=== PATIENT | female | born 1965 | race Caucasian/White ===

== ENCOUNTER 2018-01-09 11:40 | Observation (INO) ==
[2018-01-09] MEDS ORDERED: Isovue-370 500 ML INFUS..BTL IV ONE (12:40)
--- NOTE | 2018-01-09 13:08 | Emergency Department Note ---
Disposition Clinical Impression: Renal infarct Disposition: Admitted As Inpatient Condition: Fair Time of Disposition: 16:15 General Adult HPI - General Chief complaint: ED Abdominal Pain Stated complaint: Needs Eval Time Seen by Provider: 01/09/18 11:57 Source: patient, family (Brother) Mode of arrival: ambulatory Limitations: no limitations Nursing Notes Reviewed: Yes Vital Signs Reviewed: Yes - History of Present Illness HPI Narrative: 52-year-old female history COPD and diabetes presents an emergency department requesting to be evaluated for possible FLAVIO. Patient reports on being evaluated at [facility] at that time complaining of some myalgia and flank pain and was discovered to have a clot in her left kidney. She was therefore transferred to [facility] where they evaluated her. She was reportedly placed on heparin in discovered to have a pneumonia and placed on antibiotic. During her hospital stay about 2 days ago she reports them discussing possibly doing a scope to evaluate for any clots in the heart. At that time she left against medical advice. She was advised to take heparin and an antibiotic as an outpatient but has not taken any over the past 48 hours. She has a schedule outpatient appointment with her family physician today at 1400 however prior to that she was directed to come here to emergency department. At the moment she denies any complaints such as fever, cough, congestion, chest pain, shortness of breath. She denies any hemoptysis, hematemesis, or black tarry stools. At one point in the examination she did report experiencing some epigastric pain. States it was nonradiating. No nausea or vomiting. No history of cardiac ischemic disease. Denies IV drug use. Pain Scale: 4 - Related Data Home Medications Medication Instructions Recorded Confirmed Albuterol Neb [Proventil Neb] 2.5 mg IH Q4HR 01/09/18 01/09/18 Albuterol Sulfate [Albuterol 2 puff IH Q4H PRN 01/09/18 01/09/18 Inhaler] Budesonide/Formoterol 160/4.5 2 puff IH BIDR 01/09/18 01/09/18 [Symbicort 160/4.5] Empagliflozin [Jardiance] 10 mg PO DAILY 01/09/18 01/09/18 Glimepiride [Amaryl] 4 mg PO BID 01/09/18 01/09/18 Omeprazole [PriLOSEC] 20 mg PO DAILY 01/09/18 01/09/18 SUMAtriptan Succinate [Imitrex] 100 mg PO DAILY PRN 01/09/18 01/09/18 Sertraline [Zoloft] 50 mg PO DAILY 01/09/18 01/09/18 Simvastatin [Zocor] 80 mg PO HS 01/09/18 01/09/18 Sitagliptin Phos/Metformin HCl 1 tab PO BID 01/09/18 01/09/18 [Janumet 50-1,000 mg Tablet] Allergies Allergy/AdvReac Type Severity Reaction Status Date / Time aspirin AdvReac See Verified 05/20/17 15:35 Comments All systems ED: reviewed and negative except as stated. Review of Systems: As Per HPI Constitutional: Denies: fever, chills ENT ED: Denies: congestion Cardiovascular: Denies: chest pain Respiratory: Denies: cough, dyspnea Gastrointestinal: Reports: abdominal pain. Denies: nausea, vomiting Musculoskeletal: Denies: back pain, neck pain Neurological: Denies: headache, weakness, numbness Past Medical History - Past Medical History Attestation: Yes The following information was validated with the patient. 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 - Social History Smoking Status: Current every day smoker Smokeless Tobacco Status: No Alcohol use: Reports: none Drug use: Reports: none Physical Exam - General Limitations: no limitations General appearance: alert, in no apparent distress - Head Head exam: atraumatic, normocephalic, normal inspection - Eye Eye exam: Present: normal appearance, PERRL, EOMI - ENT ENT exam: normal exam, normal oropharynx, mucous membranes moist - Neck Neck exam: Present: normal inspection, full ROM, trachea midline - Chest Chest inspection: Present: normal inspection, symmetric chest wall rise - Respiratory Respiratory exam: Present: normal lung sounds bilaterally - Cardiovascular Cardiovascular exam: Present: regular rate, normal rhythm, normal heart sounds - Expanded Cardiovascular Exam Peripheral pulses: 2+: radial (R), radial (L) - Abdominal Exam Abdominal exam: Present: soft, Non-Tender, normal bowel sounds. Absent: tenderness, distention, guarding, rebound, rigidity, pulsatile mass - Extremities Exam Extremities exam: Present: normal inspection, full ROM, normal capillary refill. Absent: tenderness, pedal edema - Back Exam Back exam: Present: normal inspection, full ROM. Absent: tenderness, CVA tenderness (R), CVA tenderness (L) - Neurological Exam Neurological exam: Present: alert, oriented X3 - Psychiatric Psychiatric exam: Present: normal affect, normal mood - Skin Skin exam: Present: warm, dry, intact, normal color Course Course Narrative: Given the patient's history will evaluate for possible cardiac etiology. Will also obtain records from outside facility including the [facility] and her transfer hospital [facility]. Her vitals are otherwise stable. Her exam is unremarkable. Will obtain a CT of the chest and abdomen to evaluate for excessive clot burden. Patient will likely require admission or possible transfer. She is in agreement with this plan. EKG did not reveal any acute ischemic changes. - Reevaluation(s) Reevaluation #1: We were able to obtain records from [facility] which shows the CT scan performed 01/03/2018 which had an impression of acute infarct of the inferior half of the left kidney. There need for consideration for cardiac echocardiogram. From what the patient describes this is likely what the physicians at [facility] where discussing. She has agreed to stay for admission. Will initiate heparin anticoagulation at this time. She denies any G.I. bleed symptoms. Impression is left renal infarct. - Consultations Consultation #1: The radiologist called me regarding abnormal results of the patient's CT scan which shows concern for evolving left inferior people infarct. Unfortunately we are still unable to obtain records from outside facility for comparison. Time: 14:38 Consultation #2: Discussed in consultation with urology regarding the patient's findings. States this is not a urologic issue and typically is more vascular. Recommends consulting with vascular surgeon. Time: 15:34 Consultation #3: Spoke in-depth with the on-call vascular surgeon Dr. Hardy, who agrees that the patient likely requires anticoagulation and to evaluate for embolic source. That would require echocardiogram to evaluate the heart. Given that she does not have any renal insufficiency is not necessarily emergency performed surgery. Does recommend that she have these procedures performed if we are unable to obtain records from outside facility or possible repeat up. At this time the patient denies any G.I. bleed symptoms. She has been off anticoagulation for past 2 days. She will require admission for further evaluation Time: 15:54 Additional Consultation(s): Spoke with on-call hospitalist mindy Benjamin to admit for left renal infarct. No further orders at this time Vital Signs Temperature 98.3 F 01/09/18 11:42 Pulse Rate 100 01/09/18 11:42 Respiratory Rate 16 01/09/18 11:42 Blood Pressure 137/87 01/09/18 11:42 O2 Sat by Pulse Oximetry 96 01/09/18 11:42 Temperature 98.3 F 01/09/18 12:12 Pulse Rate 79 01/09/18 15:17 Respiratory Rate 16 01/09/18 13:51 Blood Pressure 131/91 01/09/18 15:17 O2 Sat by Pulse Oximetry 96 01/09/18 15:17 Oxygen Delivery Oxygen Delivery Room Air Medical Decision Making - MDM Narrative Medical decision making narrative: Patient was discussed with my attending physician who agrees with ED management and final disposition. They independently evaluated the patient. Please refer to their attestation to this encounter for additional information. This note was generated by [employer] voice recognition software and as a result grammatical or spelling errors may occur using this program. - Medical Records Medical records reviewed: Yes I reviewed the patient's medical records. - Lab Data Lab results reviewed: Yes I reviewed the patient's lab results. Result diagrams: 01/09/18 16:23 01/09/18 12:50 Lab Results 01/09/18 01/09/18 01/09/18 Range/Units 12:40 12:50 12:50 WBC 14.1 H (4.3-11.1) K/mcL RBC 4.62 (3.82-4.97) M/mcL Hgb 14.2 (11.5-15.4) g/dL Hct 40.8 (35.3-44.9) % MCV 88.3 (83.0-100.0) fL MCH 30.7 (28.0-33.3) pg MCHC 34.8 (31.6-35.5) g/dL RDW 12.3 (11.5-14.5) % Plt Count 348 (140-400) K/mcL MPV 9.3 L (9.4-12.4) fL Immature Gran % 0.4 (0-4) % Seg Neutrophils % 64.8 % Lymphocytes % 24.7 % Monocytes % 7.6 % Eosinophils % 2.2 % Basophils % 0.3 % Neutrophils # 9.1 H (1.6-8.9) K/mcL Lymphocytes # 3.5 (0.6-4.6) K/mcL Monocytes # 1.1 (0.0-1.3) K/mcL Eosinophils # 0.3 (0.0-0.6) K/mcL Basophils # 0.0 (0.0-0.2) K/mcL PT 13.5 H (9.4-12.1) Seconds INR 1.2 APTT 29.0 (26.0-36.0) Seconds Heparin Anti-Xa, Unfract (0.30-0.70) IU/mL Sodium 136 (136-145) mEq/L Potassium 3.6 (3.5-5.1) mEq/L Chloride 101 (98-107) mEq/L Carbon Dioxide 26 (23-29) mEq/L BUN 9 (6-20) mg/dL Creatinine 0.59 L (0.60-1.20) mg/dL Est GFR ( Amer) > 60 (> 60) Est GFR (Non-Af Amer) > 60 (> 60) BUN/Creatinine Ratio 15 (6-26) Glucose 187 H (70-105) mg/dL Calculated Osmolality 286 (280-300) Lactic Acid (0.5-2.2) mmol/L Calcium 9.1 (8.6-10.3) mg/dL Troponin I < 0.03 (< 0.04) ng/mL 01/09/18 01/09/18 01/09/18 Range/Units 14:33 16:23 16:23 WBC 14.8 H (4.3-11.1) K/mcL RBC 4.52 (3.82-4.97) M/mcL Hgb 13.7 (11.5-15.4) g/dL Hct 40.0 (35.3-44.9) % MCV 88.5 (83.0-100.0) fL MCH 30.3 (28.0-33.3) pg MCHC 34.3 (31.6-35.5) g/dL RDW 12.4 (11.5-14.5) % Plt Count 337 (140-400) K/mcL MPV 9.3 L (9.4-12.4) fL Immature Gran % (0-4) % Seg Neutrophils % % Lymphocytes % % Monocytes % % Eosinophils % % Basophils % % Neutrophils # (1.6-8.9) K/mcL Lymphocytes # (0.6-4.6) K/mcL Monocytes # (0.0-1.3) K/mcL Eosinophils # (0.0-0.6) K/mcL Basophils # (0.0-0.2) K/mcL PT 15.0 H (9.4-12.1) Seconds INR 1.3 APTT (26.0-36.0) Seconds Heparin Anti-Xa, Unfract 1.69 H* (0.30-0.70) IU/mL Sodium (136-145) mEq/L Potassium (3.5-5.1) mEq/L Chloride (98-107) mEq/L Carbon Dioxide (23-29) mEq/L BUN (6-20) mg/dL Creatinine (0.60-1.20) mg/dL Est GFR ( Amer) (> 60) Est GFR (Non-Af Amer) (> 60) BUN/Creatinine Ratio (6-26) Glucose (70-105) mg/dL Calculated Osmolality (280-300) Lactic Acid 0.7 (0.5-2.2) mmol/L Calcium (8.6-10.3) mg/dL Troponin I (< 0.04) ng/mL - Radiology Data Radiology results reviewed: Yes I reviewed the patient's radiology results. Abdomen CTA 01/09/18 12:41 IMPRESSION: 1. No acute aortic pathology. No evidence of aortic aneurysm or dissection. Some mild focal plaque along the posterior wall of the proximal infrarenal aorta, without significant narrowing. 2. Heterogeneous attenuation of the lower pole of the left kidney most consistent with an evolving infarct. No underlying mass or significant hydronephrosis. Mild infiltration of the perinephric fat. The left renal artery is patent. 3. No acute findings within the chest. Stable noncalcified pulmonary nodules. Interval resolution of cavitary left lower lobe lesion, likely inflammatory in nature. Follow-up recommendations below. 4. Hepatic steatosis. 5. If comparison outside imaging becomes available with respect to the left renal infarct, correlation can be made and an addendum added later. Critical results were called to Troy Fall on 01/09/2018 at 2:38 pm. RECOMMENDATIONS: Fleischner Society guidelines for follow-up and management of incidentally detected pulmonary nodules: Multiple Solid Nodules: Nodule size less than 6 mm In a low-risk patient, no routine follow-up. In a high-risk patient, optional CT at 12 months. - Low risk patients include individuals with minimal or absent history of smoking and other known risk factors. - High risk patients include individuals with a history or smoking or known risk factors. Radiology 2017 http://pubs.rsna.org/doi/full/10.1148/radiol.[email or web address] D/ / 01/09/2018 14:57:47 Hoang James MD / immanuel Interpreting Provider: Hoang James MD Chest CTA 01/09/18 12:41 IMPRESSION: 1. No acute aortic pathology. No evidence of aortic aneurysm or dissection. Some mild focal plaque along the posterior wall of the proximal infrarenal aorta, without significant narrowing. 2. Heterogeneous attenuation of the lower pole of the left kidney most consistent with an evolving infarct. No underlying mass or significant hydronephrosis. Mild infiltration of the perinephric fat. The left renal artery is patent. 3. No acute findings within the chest. Stable noncalcified pulmonary nodules. Interval resolution of cavitary left lower lobe lesion, likely inflammatory in nature. Follow-up recommendations below. 4. Hepatic steatosis. 5. If comparison outside imaging becomes available with respect to the left renal infarct, correlation can be made and an addendum added later. Critical results were called to Troy Fall on 01/09/2018 at 2:38 pm. RECOMMENDATIONS: Fleischner Society guidelines for follow-up and management of incidentally detected pulmonary nodules: Multiple Solid Nodules: Nodule size less than 6 mm In a low-risk patient, no routine follow-up. In a high-risk patient, optional CT at 12 months. - Low risk patients include individuals with minimal or absent history of smoking and other known risk factors. - High risk patients include individuals with a history or smoking or known risk factors. Radiology 2017 http://pubs.rsna.org/doi/full/10.1148/radiol.[email or web address] D/ / 01/09/2018 14:57:47 Hoang James MD / immanuel Interpreting Provider: Hoang James MD - EKG Data EKG #1 EKG attestation: Yes I reviewed and interpreted this EKG. EKG results narrative: EKG performed 1248 normal sinus rhythm 83 beats per minute, poor R wave progression, no ST elevation or depression, no T-wave inversion, intervals within normal limits. No prior EKG is available for comparison at this time. No acute ischemic changes.
[2018-01-09 13:13] LABS: Basophils % 0.3 %; Eosinophils # 0.3 K/mcL (0.0-0.6); Eosinophils % 2.2 %; Hematocrit 40.8 % (35.3-44.9); Hemoglobin 14.2 g/dL (11.5-15.4); Immature Granulocytes % 0.4 % (0-4); Lymphocytes # 3.5 K/mcL (0.6-4.6); Lymphocytes % 24.7 %; Mean Corpuscular HGB Conc 34.8 g/dL (31.6-35.5); Mean Corpuscular Hemoglobin 30.7 pg (28.0-33.3); Mean Corpuscular Volume 88.3 fL (83.0-100.0); Mean Platelet Volume 9.3 fL (9.4-12.4); Monocytes # 1.1 K/mcL (0.0-1.3); Monocytes % 7.6 %; Neutrophils # 9.1 K/mcL (1.6-8.9); Platelet Count 348 K/mcL (140-400); Red Blood Count 4.62 M/mcL (3.82-4.97); Red Cell Distribution Width 12.3 % (11.5-14.5); Segmented Neutrophils % 64.8 %
[2018-01-09 13:19] LABS: INR 1.2; Prothrombin Time 13.5 Seconds (9.4-12.1)
[2018-01-09 13:34] LABS: Troponin I < 0.03 ng/mL (< 0.04)
[2018-01-09 13:38] LABS: BUN/Creatinine Ratio 15 (6-26); Blood Urea Nitrogen 9 mg/dL (6-20); Calcium 9.1 mg/dL (8.6-10.3); Chloride 101 mEq/L (98-107); Glucose 187 mg/dL (70-105); Osmolality,Calculated 286 (280-300); Potassium 3.6 mEq/L (3.5-5.1); Sodium 136 mEq/L (136-145); eGFR For Non-African Americans > 60 (> 60)
[2018-01-09 13:39] LABS: Carbon Dioxide 26 mEq/L (23-29)
[2018-01-09] MEDS ORDERED: Nicotine 21 MG PATCH.TD24 TD STA (14:36)
[2018-01-09] MEDS ORDERED: *HR* LORazepam 2 MG/ML VIAL IVP ONE (14:36)
--- NOTE | 2018-01-09 14:57 | Emergency Department Note ---
Disposition Clinical Impression: Renal infarct Disposition: Still a Patient Referrals: Ender Mcneal MD [Primary Care Provider] - Forms: ED Satisfaction Letter, Work/School Release General Adult HPI - General Chief complaint: ED Abdominal Pain Stated complaint: Needs Eval Time Seen by Provider: 01/09/18 11:57 Source: patient, family (Brother) Mode of arrival: ambulatory Limitations: no limitations - History of Present Illness Pain Scale: 4 - Related Data Home Medications Medication Instructions Recorded Confirmed Glimepiride 06/21/16 Invokana 06/21/16 Naprosyn 06/21/16 06/21/16 Previous Rx's Medication Instructions Recorded methylPREDNISolone [Medrol] 4 mg PO TAPER #21 tablet 06/21/16 Ibuprofen [Motrin] 800 mg PO Q8HR PRN #30 tablet 07/30/16 Sulfamethoxazole/Trimeth DS 1 each PO BID #20 tablet 03/12/17 [Bactrim DS] levoFLOXacin [Levaquin] 750 mg PO DAILY #7 tablet 05/20/17 predniSONE [PredniSONE] 60 mg PO DAILY 5 Days tablet 05/20/17 Allergies Allergy/AdvReac Type Severity Reaction Status Date / Time aspirin AdvReac See Verified 05/20/17 15:35 Comments Constitutional: Denies: fever, chills ENT ED: Denies: congestion Cardiovascular: Denies: chest pain Respiratory: Denies: cough, dyspnea Gastrointestinal: Reports: abdominal pain. 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 history: Reports: no ADMINISTRATIVE HEARING OFFICER history - Social History Smoking Status: Current every day smoker Smokeless Tobacco Status: No Alcohol use: Reports: none Drug use: Reports: none Physical Exam - General Limitations: no limitations General appearance: alert, in no apparent distress Course Vital Signs Temperature 98.3 F 01/09/18 11:42 Pulse Rate 100 01/09/18 11:42 Respiratory Rate 16 01/09/18 11:42 Blood Pressure 137/87 01/09/18 11:42 O2 Sat by Pulse Oximetry 96 01/09/18 11:42 Temperature 98.3 F 01/09/18 12:12 Pulse Rate 81 01/09/18 13:51 Respiratory Rate 16 01/09/18 13:51 Blood Pressure 116/81 01/09/18 13:51 O2 Sat by Pulse Oximetry 97 01/09/18 13:51 Oxygen Delivery Oxygen Delivery Room Air Medical Decision Making - Lab Data Result diagrams: 01/09/18 12:50 01/09/18 12:50 Lab Results 01/09/18 01/09/18 01/09/18 Range/Units 12:40 12:50 12:50 WBC 14.1 H (4.3-11.1) K/mcL RBC 4.62 (3.82-4.97) M/mcL Hgb 14.2 (11.5-15.4) g/dL Hct 40.8 (35.3-44.9) % MCV 88.3 (83.0-100.0) fL MCH 30.7 (28.0-33.3) pg MCHC 34.8 (31.6-35.5) g/dL RDW 12.3 (11.5-14.5) % Plt Count 348 (140-400) K/mcL MPV 9.3 L (9.4-12.4) fL Immature Gran % 0.4 (0-4) % Seg Neutrophils % 64.8 % Lymphocytes % 24.7 % Monocytes % 7.6 % Eosinophils % 2.2 % Basophils % 0.3 % Neutrophils # 9.1 H (1.6-8.9) K/mcL Lymphocytes # 3.5 (0.6-4.6) K/mcL Monocytes # 1.1 (0.0-1.3) K/mcL Eosinophils # 0.3 (0.0-0.6) K/mcL Basophils # 0.0 (0.0-0.2) K/mcL PT 13.5 H (9.4-12.1) Seconds INR 1.2 APTT 29.0 (26.0-36.0) Seconds Sodium 136 (136-145) mEq/L Potassium 3.6 (3.5-5.1) mEq/L Chloride 101 (98-107) mEq/L Carbon Dioxide 26 (23-29) mEq/L BUN 9 (6-20) mg/dL Creatinine 0.59 L (0.60-1.20) mg/dL Est GFR ( Amer) > 60 (> 60) Est GFR (Non-Af Amer) > 60 (> 60) BUN/Creatinine Ratio 15 (6-26) Glucose 187 H (70-105) mg/dL Calculated Osmolality 286 (280-300) Lactic Acid (0.5-2.2) mmol/L Calcium 9.1 (8.6-10.3) mg/dL Troponin I < 0.03 (< 0.04) ng/mL 01/09/18 Range/Units 14:33 WBC (4.3-11.1) K/mcL RBC (3.82-4.97) M/mcL Hgb (11.5-15.4) g/dL Hct (35.3-44.9) % MCV (83.0-100.0) fL MCH (28.0-33.3) pg MCHC (31.6-35.5) g/dL RDW (11.5-14.5) % Plt Count (140-400) K/mcL MPV (9.4-12.4) fL Immature Gran % (0-4) % Seg Neutrophils % % Lymphocytes % % Monocytes % % Eosinophils % % Basophils % % Neutrophils # (1.6-8.9) K/mcL Lymphocytes # (0.6-4.6) K/mcL Monocytes # (0.0-1.3) K/mcL Eosinophils # (0.0-0.6) K/mcL Basophils # (0.0-0.2) K/mcL PT (9.4-12.1) Seconds INR APTT (26.0-36.0) Seconds Sodium (136-145) mEq/L Potassium (3.5-5.1) mEq/L Chloride (98-107) mEq/L Carbon Dioxide (23-29) mEq/L BUN (6-20) mg/dL Creatinine (0.60-1.20) mg/dL Est GFR ( Amer) (> 60) Est GFR (Non-Af Amer) (> 60) BUN/Creatinine Ratio (6-26) Glucose (70-105) mg/dL Calculated Osmolality (280-300) Lactic Acid 0.7 (0.5-2.2) mmol/L Calcium (8.6-10.3) mg/dL Troponin I (< 0.04) ng/mL Attestation Statement - Attestation Attestation: I examined this patient and my medical decision-making was reviewed with the Resident Physician. I agree with the documented findings, disposition and treatment plan as described except to the extent set forth below. 52 year old female presents to the ED with complaints of need re-evaluation. Patient states that she was admitted to [facility] and transfferred to [facility] for a blood clot in her left kidney in addition to needing urology and left AMA from [facility] before her evaluation completed which included a FLAVIO and hem-onc consultation for blood clots. We repeated her CT today and it appears that she has a renal infarct of the left but we are unsure if this has worsened secondary to inabilityt to having therpay to heparin due to leaving AMA. We will consult with our urologist before transferring to [facility].
[2018-01-09] MEDS ORDERED: *HR* Heparin 5,000 UNIT/ML VIAL IVP PRN ×2 (15:51)
[2018-01-09] MEDS ORDERED: *HR* Heparin 5,000 UNIT/ML VIAL IVP ONE (15:51)
[2018-01-09] MEDS: Heparin 25,000 UNIT/500 ML D5W 25,000 UNIT/500 ML BAG IVC SCH (16:07)
[2018-01-09 16:36] LABS: Hemoglobin 13.7 g/dL (11.5-15.4); Mean Corpuscular HGB Conc 34.3 g/dL (31.6-35.5); Mean Corpuscular Hemoglobin 30.3 pg (28.0-33.3); Mean Corpuscular Volume 88.5 fL (83.0-100.0); Mean Platelet Volume 9.3 fL (9.4-12.4); Platelet Count 337 K/mcL (140-400); Red Blood Count 4.52 M/mcL (3.82-4.97); Red Cell Distribution Width 12.4 % (11.5-14.5)
[2018-01-09 16:41] LABS: INR 1.3
[2018-01-09 16:43] LABS: Heparin anti-factor XA UFH 1.69 IU/mL (0.30-0.70)
[2018-01-09] MEDS ORDERED: Naloxone 0.4 MG/ML INJ IVP PRN (17:34)
[2018-01-09] MEDS ORDERED: Acetaminophen 325 MG TABLET PO PRN (17:34)
[2018-01-09] MEDS ORDERED: SUMAtriptan succinate 50 MG TABLET PO PRN (17:36)
[2018-01-09] MEDS ORDERED: *HR* Dextrose 50 % in Water (Syg) 50 ML SYRINGE IVP PRN (17:36)
[2018-01-09] MEDS ORDERED: Dextrose Gel 15 GM/37.5 ML TUBE PO PRN ×2 (17:36)
[2018-01-09] MEDS ORDERED: D5% in Water 1,000 ML IVC PRN (17:36)
--- NOTE | 2018-01-09 17:42 | Internal Med History&Physical ---
Date of Encounter: 01/09/18 Time of Encounter: 17:39 Internal Medicine - H&P: HPI Chief complaint: Left renal infarct Admitted From: Emergency Dept Plans for Post Hospital Care: Home History of present illness: Ms. Carlisle is a 52 year old female with history of COPD and diabetes, presents for possible FLAVIO. Patient is a poor historian, cannot provide detailed answers , history is also obtained by review of ER records. Patient apparently presented to [facility] emergency room last week with complaints of flulike symptoms including nausea, vomiting, diarrhea along with left flank pain. CT abdomen showed left-sided renal infarct and patient was transferred to [facility] for further evaluation and treatment. Patient does not know her plan of care at [facility], however states that she has been treated for pneumonia and renal infarct and scheduled for transesophageal echocardiogram and she left AGAINST MEDICAL ADVICE. She did receive prescriptions for an antibiotic and 2 blood thinners, the names of which she does not remember. She currently denies flank pain, hematuria, dysuria, nausea, vomiting, fever, chills. No chest pain or shortness of breath. Past Med Surg Social Fam HX - Past Medical History Source: patient, old records reviewed Medical history: COPD, coronary artery disease, diabetes, hyperlipidemia, hypertension, myocardial infarction, other Psychiatric history: anxiety, depression - Past Surgical History Surgical History: , cholecystectomy Additional surgical history: right carpal tunnel - Social History Smoking Status: Current every day smoker Smokeless Tobacco Status: No Alcohol use: none Drug use: none Occupational status: unemployed Current living situation: Home, With Family Activity Level: Independent ambulation Recent Out of Country Travel Within the Last 8 Weeks: No Exposure or Possible Exposure to Illness During Travel: No - Family History Mother Hx Family Cancer: Yes (cervical cancer) Daughter Hx Family Cancer: Yes (cervical cancer) Internal Medicine - H&P: Meds Albuterol Neb [Proventil Neb] 2.5 mg IH Q4HR 01/09/18 [History] Albuterol Sulfate [Albuterol Inhaler] 2 puff IH Q4H PRN 01/09/18 [History] Budesonide/Formoterol 160/4.5 [Symbicort 160/4.5] 2 puff IH BIDR 01/09/18 [ History] Empagliflozin [Jardiance] 10 mg PO DAILY 01/09/18 [History] Glimepiride [Amaryl] 4 mg PO BID 01/09/18 [History] Omeprazole [PriLOSEC] 20 mg PO DAILY 01/09/18 [History] SUMAtriptan Succinate [Imitrex] 100 mg PO DAILY PRN 01/09/18 [History] Sertraline [Zoloft] 50 mg PO DAILY 01/09/18 [History] Simvastatin [Zocor] 80 mg PO HS 01/09/18 [History] Sitagliptin Phos/Metformin HCl [Janumet 50-1,000 mg Tablet] 1 tab PO BID [History] 3 Allergy/AdvReac Type Severity Reaction Status Date / Time aspirin AdvReac See Verified 05/20/17 15:35 Comments All Systems PM: A 10-system review of systems was performed and is negative for pertinent findings except as documented above in the HPI. - Constitutional Constitutional: no chills, no fever(s), no night sweats - EENT Eyes: no change in vision, no discharge, no pain, no photophobia Ears: no ear discharge, no ear pain, no tinnitus Nose, mouth and throat: no dysphagia, no nasal discharge, no neck pain, no sore throat - Cardiovascular Cardiovascular ROS IM: no chest pain, no diaphoresis, no dyspnea, no lightheadedness, no palpitations, no syncope - Respiratory Respiratory: no cough, no dyspnea, no wheezing, no excessive phlegm production - Gastrointestinal Gastrointestinal: no abdominal pain, no diarrhea, no hematemesis, no hematochezia, no melena, no nausea, no vomiting - Genitourinary Genitourinary: no change in urinary stream, no dysuria, no flank pain, no hematuria - Musculoskeletal Musculoskeletal ROS IM: no numbness, no tingling - Integumentary Integumentary IM: no rash, no unusual bruising - Neurological Neurological ROS: no confusion, no convulsions, no focal weakness, no numbness, no tingling, no tremor(s) - Hematologic/Lymphatic Hematologic/Lymphatic: no easy bruising - Constitutional Vitals: Temp Pulse Resp BP Pulse Ox 98.3 F 87 18 136/82 95 01/09/18 12:12 01/09/18 16:30 01/09/18 17:18 01/09/18 17:18 01/09/18 16:30 General appearance: Present: disheveled, A&O X 3, answers questions appropriately - Respiratory Respiratory exam: Present: CTAB. Absent: accessory muscle use, rales, rhonchi, wheezes - Cardiovascular Cardiovascular exam: Present: RRR, +S1, +S2. Absent: diastolic murmur, gallop, rubs, systolic murmur - GI/Abdominal GI/Abdominal exam: Present: normal bowel sounds, soft, no peritoneal signs. Absent: distended, tenderness - Extremities Exam Extremities exam: Present: full ROM, warm, radial pulses palpable and symmetrical. Absent: calf tenderness, cyanotic, pedal edema - Neurological Exam Neurological exam: Present: CN II-XII intact, oriented X3, no focal deficits. Absent: pronater drift, facial droop, speech deficit - Skin Skin exam: Present: dry, intact Internal Med - H&P Results - Labs CBC & Chem 7: 01/09/18 16:23 01/09/18 12:50 - Assessment and plan (1) Renal infarct Current Visit: Yes Status: Acute Assessment and plan: CT angiogram of chest and abdomen shows evolving infarct in left lower pole of kidney, left renal artery patent. Case was discussed with vascular surgery by ER physician, recommended no acute surgical intervention at this time, to continue anticoagulation and further evaluation for etiology. Continue IV heparin drip. Unable to obtain records from [facility] at this time. Will check transthoracic echocardiogram. Vascular surgery consult. Supportive care. Continue to monitor renal function and urine output closely. Serum creatinine normal at this time. (2) COPD (chronic obstructive pulmonary disease) Current Visit: Yes Status: Chronic Assessment and plan: not in acute exacerbation. Continue when necessary bronchodilators and supplemental oxygen. Continue inhaled corticosteroids. Qualifiers: COPD type: unspecified COPD Qualified Code(s): J44.9 - Chronic obstructive pulmonary disease, unspecified (3) Diabetes mellitus Current Visit: Yes Status: Chronic Assessment and plan: Patient reports that she has uncontrolled diabetes. Start Accu-Chek blood glucose monitoring with sliding scale insulin as needed. Check hemoglobin A1c. Diabetic diet. We will hold oral hypoglycemics at this time. 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 (5) Tobacco abuse Current Visit: Yes Status: Chronic Assessment and plan: Patient is not motivated to quit smoking at this time. Continue when necessary nicotine transdermal patch. (6) Hyperlipidemia Current Visit: Yes Status: Chronic Assessment and plan: Resume statin. Qualifiers: Hyperlipidemia type: unspecified Qualified Code(s): E78.5 - Hyperlipidemia , unspecified - Time Spent With Patient Total time spent is greater than 50% in coordination of care (as documented) at patient's floor/unit and/or counseling patient:
[2018-01-09 19:04] LABS: Estimated Average Glucose 235 mg/dl; Hemoglobin A1C 9.8 %
[2018-01-09] MEDS: Budesonide/Formoterol 160/4.5 MDI IH SCH (19:58)
[2018-01-09] MEDS: Albuterol 2.5 MG/3 ML NEBULIZER IH SCH ×2 (19:58→23:44)
[2018-01-09] MEDS ORDERED: Insulin LISPRO 300 UNITS/3 ML VIAL SQ SCH (21:00)
[2018-01-10] MEDS: Albuterol 2.5 MG/3 ML NEBULIZER IH SCH (03:52)
[2018-01-10 05:53] LABS: Basophils # 0.1 K/mcL (0.0-0.2); Basophils % 0.4 %; Eosinophils # 0.5 K/mcL (0.0-0.6); Eosinophils % 3.7 %; Hematocrit 37.2 % (35.3-44.9); Hemoglobin 12.5 g/dL (11.5-15.4); Immature Granulocytes % 0.5 % (0-4); Lymphocytes # 3.6 K/mcL (0.6-4.6); Mean Corpuscular HGB Conc 33.6 g/dL (31.6-35.5); Mean Corpuscular Hemoglobin 30.3 pg (28.0-33.3); Mean Corpuscular Volume 90.1 fL (83.0-100.0); Mean Platelet Volume 9.6 fL (9.4-12.4); Monocytes # 1.1 K/mcL (0.0-1.3); Neutrophils # 8.1 K/mcL (1.6-8.9); Platelet Count 340 K/mcL (140-400); Red Blood Count 4.13 M/mcL (3.82-4.97); Red Cell Distribution Width 12.5 % (11.5-14.5); Segmented Neutrophils % 60.4 %
[2018-01-10 06:12] LABS: BUN/Creatinine Ratio 26 (6-26); Blood Urea Nitrogen 14 mg/dL (6-20); Calcium 8.6 mg/dL (8.6-10.3); Carbon Dioxide 26 mEq/L (23-29); Chloride 103 mEq/L (98-107); Chol/HDL Ratio 5.2 (0-4.9); Cholesterol 141 mg/dL (< 200); Glucose 246 mg/dL (70-105); HDL Cholesterol 27 mg/dL (40-59); LDL Cholesterol,Calculated 79 mg/dL (0-99); Osmolality,Calculated 289 (280-300); Potassium 3.9 mEq/L (3.5-5.1); Sodium 135 mEq/L (136-145); Triglycerides 177 mg/dL (< 150); eGFR For Non-African Americans > 60 (> 60)
--- NOTE | 2018-01-10 06:43 | Electrocardiograph Report ---
[facility] Date: 2018-01-09 Pat Name: Blanka Carlisle Department: 104 Room: 2A37 Gender: F Consultant Dietitian: : 1965 Requested By: Troy Fall Order Number: [id number] Reading MD: Yusef Temple Measurements Intervals [place] Rate: 83 P: 71 NE: 190 QRS: -16 QRSD: 88 T: 39 QT: 332 QTc: 371 Interpretive Statements SINUS RHYTHM LEFT ATRIAL ENLARGEMENT WARNING: DATA QUALITY MAY AFFECT INTERPRETATION Electronically Signed On 01-10-2018 6:42:12 EDT by Yusef Temple
[2018-01-10] MEDS ORDERED: Albuterol 2.5 MG/3 ML NEBULIZER IH PRN (07:23)
[2018-01-10] MEDS ORDERED: Insulin LISPRO 300 UNITS/3 ML VIAL SQ SCH ×2 (07:30→21:00)
[2018-01-10] MEDS: Budesonide/Formoterol 160/4.5 MDI IH SCH ×2 (10:35→20:16)
[2018-01-10] MEDS: Insulin LISPRO 300 UNITS/3 ML VIAL SQ SCH ×2 (12:59→18:37)
--- NOTE | 2018-01-10 14:48 | Vascular/Endovasc Consult Note ---
Date of Encounter: 01/10/18 Time of Encounter: 12:15 Assessment and Plan (1) CAD (coronary artery disease) Current Visit: No Status: Chronic History of coronary artery disease and previous infarction. Qualifiers: Coronary Disease-Associated Artery/Lesion type: [place] artery [place] vs. transplanted heart: rincon heart Associated angina: angina presence unspecified Qualified Code(s): I25.10 - Atherosclerotic heart disease of rincon coronary artery without angina pectoris (2) Renal infarct Current Visit: Yes Status: Acute Patient had infarction of the lower 3/5 of the left kidney. Etiology at this time is unclear. There appears to be no aortic or renal artery pathology. Right kidney appears normal. Patient is asymptomatic from this lesion at this time. Due to the patient's nausea and vomiting one potential etiology can be a renal vein thrombosis though this apparently was not found on the CT angiogram. Encourage that the patient have transesophageal echocardiogram. Doubt any need for vascular intervention. Patient will need anticoagulation. (3) Diabetes mellitus Current Visit: Yes Status: Chronic Patient has chronic diabetes. 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 Carlisle is a 52 year old female Was admitted yesterday via the ER for further evaluation concerning a new finding of a left renal infarct. The patient had developed nausea and vomiting this past Sunday evening (1 week ago). She then went to the emergency room at [facility] and a CT scan was performed which demonstrated a left renal infarct. She was then referred to [facility]. She underwent a workup there though that was not complete. She checked out AMA this past Sunday for reasons that are not entirely clear. She then came to the ER yesterday requesting completion of her workup. As best I can determine there has not been a clear etiology established for this left renal infarct at this time. Prior to this the patient has no past history of renal disease. She denies any history of trauma or falls. She had not had any previous manipulation of the kidneys or kidney biopsies. The nausea and vomiting that she had experienced has resolved spontaneously. She denies any active symptoms at this time. Of note she was told that her how state that she had a pneumonia. She was given a prescription for both anticoagulation medicine and antibiotics but these medicines have not yet been picked up and we do not know the identity of these medications. No clear preceding exacerbating factors for renal infarct can be identified. The patient states she has a history of irregular heartbeats but she is very vague on this issue and I do not know if this is ever been pursued clinically. I have reviewed the most recent CT angiogram of the chest and abdomen that was performed yesterday. I can identify no aortic or renal artery pathology. The patient has a clinically interesting but not contributing finding of an abnormal takeoff of the right subclavian artery. The infarction of the left kidney appears to involve the inferior 3/5 of the kidney. The right kidney appears normal. The overall size of the left kidney appears normal. I do not see any hematoma or retroperitoneal findings. Apparently the patient has had a transthoracic echocardiogram performed earlier today but at the time of this dictation the results are not available. Past Med Surg Social Fam HX - Past Medical History Medical history: COPD, coronary artery disease, diabetes, hyperlipidemia, hypertension, myocardial infarction, other Psychiatric history: anxiety, depression - Past Surgical History Surgical History: , cholecystectomy Additional surgical history: right carpal tunnel - Social History Smoking Status: Current every day smoker Packs per day: 0.5 Smokeless Tobacco Status: No Alcohol use: none Drug use: none - Family History Mother Living Status: Age at : 55 Hx Family Cancer: Yes (cervical cancer) Daughter Living Status: Still Living Hx Family Cancer: Yes (cervical cancer) Medications and Allergies Albuterol Neb [Proventil Neb] 2.5 mg IH Q4HR 01/09/18 [History] Albuterol Sulfate [Albuterol Inhaler] 2 puff IH Q4H PRN 01/09/18 [History] Budesonide/Formoterol 160/4.5 [Symbicort 160/4.5] 2 puff IH BIDR 01/09/18 [ History] Empagliflozin [Jardiance] 10 mg PO DAILY 01/09/18 [History] Glimepiride [Amaryl] 4 mg PO BID 01/09/18 [History] Omeprazole [PriLOSEC] 20 mg PO DAILY 01/09/18 [History] SUMAtriptan Succinate [Imitrex] 100 mg PO DAILY PRN 01/09/18 [History] Sertraline [Zoloft] 50 mg PO DAILY 01/09/18 [History] Simvastatin [Zocor] 80 mg PO HS 01/09/18 [History] Sitagliptin Phos/Metformin HCl [Janumet 50-1,000 mg Tablet] 1 tab PO BID [History] 3 Allergy/AdvReac Type Severity Reaction Status Date / Time aspirin AdvReac See Verified 05/20/17 15:35 Comments All Systems Review: The remainder of the systems were reviewed and are negative Exam Vital Signs, Last 4 Hours Temp Pulse Resp BP Pulse Ox 01/10/18 11:46 98.7 F 61 18 101/64 96 General: Present: Conversant, No Apparent Distress, Other (Patient has significantly short stature area patient also has masculine facial feature) HEENT: Present: Atraumatic, Trachea midline Neck: Absent: JVD, Left Carotid bruit, Right Carotid bruit, Midline deformity, Tracheal deviation Cardiac: Present: Reg Rate and Rhythm, Normal S1 and S2, No Murmur. Absent: Irregular Rhythm Lungs: Present: Normal Breath Sounds Neuro: Present: Alert and responsive, No focal deficits noted Abdomen: Present: Soft, Non-tender, Other (No abdominal bruits.). Absent: Masses Vascular: Present: Normal capillary refill. Absent: Cyanosis Skin: Present: No rashes noted on visualized skin Musculoskeletal: Present: No Chest Wall Tenderness Consult Discharge Plan - Plan Referrals: Ender Mcneal MD [Primary Care Provider] -
--- NOTE | 2018-01-10 16:08 | Internal Med Progress Note ---
Hospitalist Progress Note - Encounter Date of Encounter: 01/10/18 Time of Encounter: 16:03 - Subjective Interval History: Feels well; no new complaints; denies chest pain, shortness of breath, flank pain, hematuria; tolerates diet, ambulates well; on IV Heparin drip; - Exam Vitals: Temp Pulse Resp BP Pulse Ox 98.7 F 61 18 101/64 96 01/10/18 11:46 01/10/18 11:46 01/10/18 11:46 01/10/18 11:46 01/10/18 11:46 Exam: General: Well-developed petite female sitting at the edge of bed in no acute distress Chest: Normal thoracic expansion. Normal breath sounds. Clear to auscultation. Heart: Normal S1 & S2; rhythmic. No rubs or murmurs. Abdomen: Non-distended, soft and nontender Extremities: No clubbing, cyanosis or edema. No calf tenderness. Normal distal pulses. Neurological: Awake, alert and oriented to person, place and time. No focal deficits. Has poor insight and understanding of medical condition; - Assessment and Plan (1) Renal infarct Current Visit: Yes Status: Acute Assessment and Plan: CT angiogram of chest and abdomen shows evolving infarct in left lower pole of kidney, left renal artery patent. Case discussed with vascular surgery today- agree with anticoagulation and further evaluation for etiology with TTE and FLAVIO. No vascular intervention as no clear lesion was identified on CTA abdomen ; Continue IV heparin drip. Transthoracic echocardiogram shows no thrombus, preserved EF, mild diastolic dysfunction. Plan for transesophageal echocardiogram tomorrow. Continue to monitor renal function and urine output closely. Serum creatinine normal at this time. Anticipate discharge in a.m. on oral anticoagulation. (2) COPD (chronic obstructive pulmonary disease) Current Visit: Yes Status: Chronic Assessment and Plan: not in acute exacerbation. Continue when necessary bronchodilators and supplemental oxygen. Continue inhaled corticosteroids. (3) Diabetes mellitus Current Visit: Yes Status: Chronic Assessment and Plan: Blood sugars noted to be elevated. Start basal insulin, increase sliding scale insulin. Continue Accu-Chek blood glucose monitoring. Diabetic diet. Hemoglobin A1c elevated at 9.8% (4) Anxiety and depression Current Visit: Yes Status: Chronic (5) Tobacco abuse Current Visit: Yes Status: Chronic (6) Hyperlipidemia Current Visit: Yes Status: Chronic - Time Spent with Patient Total time spent is greater than 50% in coordination of care (as documented) at patient's floor/unit and/or counseling patient: Plan of Care Discussed with: patient Internal Medicine: Result - Labs CBC & Chem 7: 01/10/18 05:28 01/10/18 05:28 Labs: Short CBC 01/10/18 Range/Units 05:28 WBC 13.4 H (4.3-11.1) K/mcL Hgb 12.5 (11.5-15.4) g/dL Hct 37.2 (35.3-44.9) % Plt Count 340 (140-400) K/mcL Neutrophils # 8.1 (1.6-8.9) K/mcL BMP 01/10/18 05:28 Sodium 135 L Potassium 3.9 Chloride 103 Carbon Dioxide 26 BUN 14 Creatinine 0.54 L Glucose 246 H Calcium 8.6 Cardiac Enzymes 01/09/18 01/09/18 01/10/18 Range/Units 17:57 22:04 05:28 Troponin I < 0.03 < 0.03 < 0.03 (< 0.04) ng/mL - ABG Interpretation ABG results: PT/INR, D-dimer PT 15.0 Seconds (9.4-12.1) H 01/09/18 16:23 - Impressions Impressions Echocardiogram 01/10/18 17:37 Impressions: LVEF 60%. Mild left ventricular diastolic dysfunction. Normal right ventricular structure and function. No significant valvular dysfunction. No pulmonary hypertension. There is a trivial pericardial effusion present. There is no echocardiographic evidence of tamponade. Thrombus is not identified on this study. Left Ventricular Wall Motion: Rest Echo Findings All wall segments showed normal motion. Findings: Study Quality * Technically adequate exam. ECG Findings * Normal sinus rhythm. Left Ventricle * LVEF 60%. * Mild left ventricular diastolic dysfunction. * Normal LV chamber size and wall thickness. Right Ventricle * Normal right ventricular structure and function. Left Atrium * Moderately dilated left atrium. Right Atrium * Normal right atrial size. Aortic Valve * No aortic regurgitation. * Aortic valve not well visualized. * No aortic stenosis. Mitral Valve * Normal mitral valve structure. * No mitral regurgitation. * No mitral stenosis. Tricuspid Valve * Tricuspid valve not well visualized. * Trace tricuspid regurgitation. * Estimated RA pressure is 3 mmHg. * Estimated RVSP is 27 mmHg. * No pulmonary hypertension. Pulmonic Valve * Pulmonic valve is not well visualized. * No pulmonic stenosis. * No pulmonic regurgitation. Pulmonary Artery * Pulmonary artery not well visualized. Aorta * Normally sized aortic root. Pericardium * There is a trivial pericardial effusion present. * There is no echocardiographic evidence of tamponade. Interatrial Septum * No evidence of PFO by color Doppler. IVC * Normal IVC dimensions and inspiratory collapse. 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
[2018-01-10] MEDS: Nicotine 21 MG PATCH.TD24 TD SCH (18:36)
[2018-01-10] MEDS: Heparin 25,000 UNIT/500 ML D5W 25,000 UNIT/500 ML BAG IVC SCH (22:41)
[2018-01-10] MEDS: Insulin DETEMIR 100 UNIT/ML X5UNITS SQ SCH (22:41)
[2018-01-11] MEDS ORDERED: Lidocaine Viscous Oral Soln 15 ML SOLUTION MM PRN (09:29)
[2018-01-11] MEDS ORDERED: 0.9 % Sodium Chloride 500 ML IVC ONE (09:30)
[2018-01-11] MEDS ORDERED: Tetracaine/Benzocaine/Butamben 200MG/SPRAY (100SPY/BOT) MM ONE (09:31)
[2018-01-11] MEDS: Budesonide/Formoterol 160/4.5 MDI IH SCH (10:12)
[2018-01-11] MEDS: *HR* FentaNYL (PF) 100 MCG/2 ML VIAL IVP PRN ×2 (10:20→10:25)
[2018-01-11] MEDS: *HR* Midazolam HCl 5 MG/5 ML VIAL IVP PRN ×3 (10:20→10:30)
[2018-01-11] MEDS: Insulin LISPRO 300 UNITS/3 ML VIAL SQ SCH ×2 (11:06→14:26)
[2018-01-11 11:54] VITALS: BP 119/78
[2018-01-11] MEDS: Nicotine 21 MG PATCH.TD24 TD SCH (14:25)
[2018-01-11] MEDS: Insulin DETEMIR 100 UNIT/ML X5UNITS SQ SCH (14:25)
--- NOTE | 2018-01-11 14:53 | Oncology Inp Consult Note ---
Date of Encounter: 01/11/18 Time of Encounter: 14:00 Assessment and Plan (1) Renal infarct Status: Acute Assessment and plan: CTA chest/abdomen/pelvis reveals: 1. No acute aortic pathology. Some mild focal plaque along the posterior wall of the proximal infrarenal aorta. 2. Heterogeneous attenuation of the lower pole of the left kidney most consistent with an evolving infarct. The left renal artery is patent. 3. No acute findings within the chest. Stable noncalcified pulmonary nodules. Interval resolution of cavitary left lower lobe lesion, likely inflammatory in nature. 4. Hepatic steatosis. TTE-LVEF 60%, mild left ventricular diastolic dysfunction, no identified thrombus FLAVIO-No evidence for intra-cardiac source of embolus. No PFO with saline contrast injection. Grade II atherosclerotic plaquing of the descending thoracic aorta. Plan: Currently on heparin gtt Patients family brought in prescriptions from [facility]- filled rx for Eliquis today Recommend transition to Eliquis Patient will require at least 6 months of anticoagulation, potentially indefinitely, this will be determined on outpatient basis Offered follow up with supervisor drawing, however, patient declined and states she has regular follow up with Dr. Mcneal Patient discharged prior to supervisor drawing in person consultation, plan as above was reviewed with Dr. Rodriguez - Data of Consult Patient: new to practice Consult date: 01/11/18 Requesting Physician: Yolanda Mills MD Primary Care Provider: Ender Mcneal MD - Consult Narrative Reason for consult: Left Renal Infarct History of present illness: Ms. Carlisle is a 52 year old female with past medical history significant for COPD , diabetes, hyperlipidemia, AR, HTN, tobacco use 1/2 PPD, presents to [facility] for further evaluation of her left renal infarct after supposedly leaving AMA from [facility]. Per patient and family who appear to be poor historians, patient presented to [facility] on 01/03/18 with report of nausea, vomiting and left flank pain. She was subsequently transferred to [facility] and left AMA prior to obtaining TTE/FLAVIO or hematology evaluation. She was given a prescription for Eliquis which patient just had filled today. I cannot find online records of patients admission to [facility] and did questions whether patient was actually admitted to another hospital in [place] although patients family state they are positive she was admitted in [facility]. Ms. Carlisle reports no personal history of prior DVT/PE. Patients son had a history of PE at young age following extended ICU admission on ventilator support. She currently denies flank pain, hematuria, dysuria, nausea, vomiting, fever, chills. No chest pain or shortness of breath. Past Med Surg Social Fam HX - Past Medical History Medical history: COPD, coronary artery disease, diabetes, hyperlipidemia, hypertension, myocardial infarction, other Psychiatric history: anxiety, depression - Past Surgical History Surgical History: , cholecystectomy Additional surgical history: right carpal tunnel - Social History Smoking Status: Current every day smoker Packs per day: 0.5 Smokeless Tobacco Status: No Alcohol use: none Drug use: none - Family History Mother Living Status: Age at : 55 Hx Family Cancer: Yes (cervical cancer) Daughter Living Status: Still Living Hx Family Cancer: Yes (cervical cancer) Medications and Allergies Albuterol Neb [Proventil Neb] 2.5 mg IH Q4HR 01/09/18 [History] Albuterol Sulfate [Albuterol Inhaler] 2 puff IH Q4H PRN 01/09/18 [History] Budesonide/Formoterol 160/4.5 [Symbicort 160/4.5] 2 puff IH BIDR 01/09/18 [ History] Empagliflozin [Jardiance] 10 mg PO DAILY 01/09/18 [History] Glimepiride [Amaryl] 4 mg PO BID 01/09/18 [History] Omeprazole [PriLOSEC] 20 mg PO DAILY 01/09/18 [History] SUMAtriptan Succinate [Imitrex] 100 mg PO DAILY PRN 01/09/18 [History] Sertraline [Zoloft] 50 mg PO DAILY 01/09/18 [History] Simvastatin [Zocor] 80 mg PO HS 01/09/18 [History] Sitagliptin Phos/Metformin HCl [Janumet 50-1,000 mg Tablet] 1 tab PO BID [History] Apixaban [Eliquis] 5 mg PO BID #60 tablet 01/11/18 [Rx] 3 Allergy/AdvReac Type Severity Reaction Status Date / Time aspirin AdvReac See Verified 05/20/17 15:35 Comments Constitutional: Present: as per HPI. Absent: anorexia, chills, fatigue, fever(s ), weakness, weight loss Eyes: Absent: change in vision Nose, mouth and throat: Absent: dysphagia Cardiovascular: Absent: chest pain, palpitations Respiratory: Present: cough. Absent: dyspnea Gastrointestinal: Absent: abdominal pain, nausea, vomiting Genitourinary: Absent: dysuria, flank pain, hematuria Musculoskeletal: Absent: muscle weakness Integumentary: Absent: rash, wounds Neurological: Absent: focal weakness, frequent falls Psychiatric: Present: as per HPI Hematologic/Lymphatic: Present: as per HPI Oncology - Exam - Constitutional Vitals: Temp Pulse Resp BP Pulse Ox 98.1 F 82 19 119/78 95 01/11/18 11:52 01/11/18 11:52 01/11/18 11:52 01/11/18 11:52 01/11/18 11:52 General appearance: cooperative, no acute distress, no febrile - Head Head exam: Present: atraumatic - ENT ENT exam: Present: mucous membranes moist - Respiratory Respiratory exam: Present: CTAB. Absent: respiratory distress - Cardiovascular Cardiovascular exam: Present: RRR, +S1, +S2 - GI/Abdominal GI/Abdominal exam: Present: normal bowel sounds, soft. Absent: guarding, rebound, tenderness - Extremities Exam Extremities exam: Present: normal inspection. Absent: calf tenderness - Neurological Exam Neurological exam: Present: alert, oriented X3, no focal deficits, strengths equal and symetr throughout - Psychiatric Psychiatric exam: Present: normal affect, normal mood - Skin Skin exam: Present: dry, intact, normal color, warm Oncology - Results Labs: 3 01/11/18 01/10/18 01/10/18 11:51 21:25 17:58 WBC RBC Hgb Hct MCV MCH MCHC RDW Plt Count MPV Immature Gran % Seg Neutrophils % Lymphocytes % Monocytes % Eosinophils % Basophils % Neutrophils # Lymphocytes # Monocytes # Eosinophils # Basophils # Heparin Anti-Xa, Unfract 0.34 Sodium Potassium Chloride Carbon Dioxide BUN Creatinine Est GFR ( Amer) Est GFR (Non-Af Amer) BUN/Creatinine Ratio Glucose POC Glucose 151 H 242 H Est Mean Plasma Glucose Hemoglobin A1c Calculated Osmolality Calcium Troponin I Triglycerides Cholesterol LDL Cholesterol, Calc VLDL Cholesterol, Calc HDL Cholesterol Cholesterol/HDL Ratio 3 01/10/18 01/10/18 01/10/18 16:37 12:09 11:42 WBC RBC Hgb Hct MCV MCH MCHC RDW Plt Count MPV Immature Gran % Seg Neutrophils % Lymphocytes % Monocytes % Eosinophils % Basophils % Neutrophils # Lymphocytes # Monocytes # Eosinophils # Basophils # Heparin Anti-Xa, Unfract 0.30 Sodium Potassium Chloride Carbon Dioxide BUN Creatinine Est GFR ( Amer) Est GFR (Non-Af Amer) BUN/Creatinine Ratio Glucose POC Glucose 130 H 283 H Est Mean Plasma Glucose Hemoglobin A1c Calculated Osmolality Calcium Troponin I Triglycerides Cholesterol LDL Cholesterol, Calc VLDL Cholesterol, Calc HDL Cholesterol Cholesterol/HDL Ratio 3 01/10/18 01/10/18 01/10/18 05:28 05:28 05:28 WBC RBC Hgb Hct MCV MCH MCHC RDW Plt Count MPV Immature Gran % Seg Neutrophils % Lymphocytes % Monocytes % Eosinophils % Basophils % Neutrophils # Lymphocytes # Monocytes # Eosinophils # Basophils # Heparin Anti-Xa, Unfract 0.26 L Sodium 135 L Potassium 3.9 Chloride 103 Carbon Dioxide 26 BUN 14 Creatinine 0.54 L Est GFR ( Amer) > 60 Est GFR (Non-Af Amer) > 60 BUN/Creatinine Ratio 26 Glucose 246 H POC Glucose Est Mean Plasma Glucose Hemoglobin A1c Calculated Osmolality 289 Calcium 8.6 Troponin I < 0.03 Triglycerides 177 H Cholesterol 141 LDL Cholesterol, Calc 79 VLDL Cholesterol, Calc 35 H HDL Cholesterol 27 L Cholesterol/HDL Ratio 5.2 H 3 01/10/18 01/09/18 01/09/18 05:28 22:04 22:04 WBC 13.4 H RBC 4.13 Hgb 12.5 Hct 37.2 MCV 90.1 MCH 30.3 MCHC 33.6 RDW 12.5 Plt Count 340 MPV 9.6 Immature Gran % 0.5 Seg Neutrophils % 60.4 Lymphocytes % 27.0 Monocytes % 8.0 Eosinophils % 3.7 Basophils % 0.4 Neutrophils # 8.1 Lymphocytes # 3.6 Monocytes # 1.1 Eosinophils # 0.5 Basophils # 0.1 Heparin Anti-Xa, Unfract 0.44 Sodium Potassium Chloride Carbon Dioxide BUN Creatinine Est GFR ( Amer) Est GFR (Non-Af Amer) BUN/Creatinine Ratio Glucose POC Glucose Est Mean Plasma Glucose Hemoglobin A1c Calculated Osmolality Calcium Troponin I < 0.03 Triglycerides Cholesterol LDL Cholesterol, Calc VLDL Cholesterol, Calc HDL Cholesterol Cholesterol/HDL Ratio 3 01/09/18 01/09/18 01/09/18 17:57 17:57 17:51 WBC RBC Hgb Hct MCV MCH MCHC RDW Plt Count MPV Immature Gran % Seg Neutrophils % Lymphocytes % Monocytes % Eosinophils % Basophils % Neutrophils # Lymphocytes # Monocytes # Eosinophils # Basophils # Heparin Anti-Xa, Unfract Sodium Potassium Chloride Carbon Dioxide BUN Creatinine Est GFR ( Amer) Est GFR (Non-Af Amer) BUN/Creatinine Ratio Glucose POC Glucose 202 H Est Mean Plasma Glucose 235 Hemoglobin A1c 9.8 H Calculated Osmolality Calcium Troponin I < 0.03 Triglycerides Cholesterol LDL Cholesterol, Calc VLDL Cholesterol, Calc HDL Cholesterol Cholesterol/HDL Ratio Consult Discharge Plan - Plan Additional Instructions: F/up with PCP in 1-2 weeks F/up with Hematology/Oncology in 3-4 weeks Referrals: Juan Luis Rodriguez MD [Partnered Physician] - 01/31/18 1:45 pm (Follow up as scheduled.) Ender Mcneal MD [Primary Care Provider] - 01/16/18 9:00 am (Follow up as scheduled. ) Prescriptions: Apixaban [Eliquis] 5 mg PO BID #60 tablet
--- NOTE | 2018-01-11 15:09 | Discharge Summary ---
- NOTES TO OUTPATIENT PROVIDER Notes to Outpatient Provider: Isolated left renal infarct, no cardiac or vascular etiology noted; started on Eliquis; to f/up with Hematology as outpatient; Orders not resulted at time of discharge: Pending orders 01/11/18 18:00 Heparin anti-factor XA UFH [COAG] Timed Date of Encounter: 01/11/18 Time of Encounter: 14:00 - Discharge Diagnosis (1) Renal infarct Priority: Primary Status: Acute (2) COPD (chronic obstructive pulmonary disease) Priority: Secondary Status: Chronic Qualifiers: COPD type: unspecified COPD Qualified Code(s): J44.9 - Chronic obstructive pulmonary disease, unspecified (3) Diabetes mellitus Priority: Secondary Status: Chronic Qualifiers: Diabetes mellitus type: type 2 Diabetes mellitus senior living insulin use: without longwall foreman use Diabetes mellitus complication status: with hyperglycemia Qualified Code(s): E11.65 - Type 2 diabetes mellitus with hyperglycemia (4) Anxiety and depression Priority: Secondary Status: Chronic (5) Tobacco abuse Priority: Secondary Status: Chronic (6) Hyperlipidemia Priority: Secondary Status: Chronic Qualifiers: Hyperlipidemia type: unspecified Qualified Code(s): E78.5 - Hyperlipidemia , unspecified Hospital course: Ms. Carlisle is a 52 year old female with the above medical problems who recently presented to [facility] emergency room with flulike symptoms including nausea, vomiting and flank pain and was diagnosed with left renal infarct, transfer to [facility], started on anticoagulation and plan for transesophageal echocardiogram, when she left AGAINST MEDICAL ADVICE. Patient presented to our emergency room requesting for FLAVIO to be completed. She remained hemodynamically stable and asymptomatic throughout this hospitalization. Initial labs were unremarkable. CT angiogram of chest and abdomen showed an isolated left renal infarct with no vascular anomaly including dissection or aneurysm. Vascular surgery was consulted and agreed with anticoagulation, no surgical intervention recommended. Patient underwent transthoracic and transesophageal echocardiogram which were unremarkable, no source of thrombus identified. Case was discussed with hematology, patient is stable for discharge on oral anticoagulation at least for 6 months with outpatient hematology follow-up. Patient is noted to have a 30 day supply of Eliquis that she just filled, provided to her by [facility]. She is encouraged to remain compliant with this and to follow-up with PCP and hematology as outpatient. She also has slightly elevated blood sugars, encouraged to monitor blood sugars closely and discuss with her primary care provider. Discharge discussed with: patient, nurse, testing consultant - Time Spent with Patient Total time spent providing and/or coordinating discharge services: Greater than 30 minutes (40 min) - Discharge Medications Prescriptions: Apixaban [Eliquis] 5 mg PO BID #60 tablet Home Medications: Albuterol Neb [Proventil Neb] 2.5 mg IH Q4HR 01/09/18 [History] Albuterol Sulfate [Albuterol Inhaler] 2 puff IH Q4H PRN 01/09/18 [History] Budesonide/Formoterol 160/4.5 [Symbicort 160/4.5] 2 puff IH BIDR 01/09/18 [ History] Empagliflozin [Jardiance] 10 mg PO DAILY 01/09/18 [History] Glimepiride [Amaryl] 4 mg PO BID 01/09/18 [History] Omeprazole [PriLOSEC] 20 mg PO DAILY 01/09/18 [History] SUMAtriptan Succinate [Imitrex] 100 mg PO DAILY PRN 01/09/18 [History] Sertraline [Zoloft] 50 mg PO DAILY 01/09/18 [History] Simvastatin [Zocor] 80 mg PO HS 01/09/18 [History] Sitagliptin Phos/Metformin HCl [Janumet 50-1,000 mg Tablet] 1 tab PO BID [History] Apixaban [Eliquis] 5 mg PO BID #60 tablet 01/11/18 [Rx] Allergies/Adverse Reactions: 3 Allergy/AdvReac Type Severity Reaction Status Date / Time aspirin AdvReac See Verified 05/20/17 15:35 Comments Date of admission: 01/09/18 16:42 Primary care physician: Ender Mcneal MD Consults: 01/09/18 17:36 Consult to Vascular Surgery [CONS] Routine Consulting Provider: Vascular Surgery Ama Reason for Consult: Acute evolving left renal infarct Call Completed: No 01/11/18 09:12 Consult to Oncology Hematology [CONS] Routine Consulting Provider: Brielle Murphy Reason for Consult: Left renal infarct, isolated; anticoagulation and duration recommendations; Call Completed: Yes Discharging clinician: Yolanda Mills Anticipated date of discharge: 01/11/18 - Constitutional Vitals: Temp Pulse Resp BP Pulse Ox 98.1 F 82 19 119/78 95 08/10/18 11:52 01/11/18 11:52 01/11/18 11:52 01/11/18 11:52 01/11/18 11:52 General appearance: Present: disheveled, A&O X 3, answers questions appropriately - Cardiovascular Cardiovascular exam: Present: RRR, +S1, +S2. Absent: diastolic murmur, gallop, rubs, systolic murmur - Patient Status Disposition: Home, Self-Care Condition: Good Functional capacity at discharge: independent ambulation Overall status at discharge: patient is back to baseline - Discharge Instructions Follow Up With: Juan Luis Rodriguez MD [Partnered Physician] - 01/31/18 1:45 pm (Follow up as scheduled.) Ender Mcneal MD [Primary Care Provider] - 01/16/18 9:00 am (Follow up as scheduled. ) Forms: Work/School Release Additional Instructions: F/up with PCP in 1-2 weeks F/up with Hematology/Oncology in 3-4 weeks - Diet and Activity Activity: resume usual activities as tolerated Diet: diabetic diet, low fat, low cholesterol, low salt diet
--- NOTE | 2018-01-11 15:59 | Vascular/[facility] Progress Note ---
Date of Encounter: 01/11/18 Time of Encounter: 14:30 - Assessment and plan (1) CAD (coronary artery disease) Current Visit: No Status: Chronic History of coronary artery disease and previous infarction. Qualifiers: Coronary Disease-Associated Artery/Lesion type: [place] artery [place] vs. transplanted heart: [place] heart Associated angina: angina presence unspecified Qualified Code(s): I25.10 - Atherosclerotic heart disease of [place] coronary artery without angina pectoris (2) Renal infarct Current Visit: Yes Status: Acute Patient had infarction of the lower 3/5 of the left kidney. Etiology at this time is unclear. There appears to be no aortic or renal artery pathology. Right kidney appears normal. Patient is asymptomatic from this lesion at this time. Due to the patient's nausea and vomiting one potential etiology can be a renal vein thrombosis though this apparently was not found on the CT angiogram. Encourage that the patient have transesophageal echocardiogram. Doubt any need for vascular intervention. Patient will need anticoagulation. Patient had FLAVIO done earlier today. No significant findings. No significant findings on transthoracic echocardiogram. Agree with long-term anticoagulation with Devora burdick. Patient does not need vascular surgery follow-up as no intervention is planned. We'll sign off the case. (3) Diabetes mellitus Current Visit: Yes Status: Chronic Patient has chronic diabetes. 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 She denies any abdominal issues. She denies any shortness of breath. The patient is status post a FLAVIO. There were no significant findings. Etiology for her left renal infarct remains unclear at this time. - Physical Examination General: Present: Conversant, No Apparent Distress HEENT: Present: Atraumatic, Normocephaly Neck: Absent: JVD Lungs: Absent: Dullness to percussion Neuro: Present: Alert and responsive, No focal deficits noted Results 01/10/18 05:28 01/10/18 05:28 - Imaging / Other Tests Echo: report reviewed (No significant findings on transthoracic and transesophageal echocardiograms. No obvious source identified either intracardiac or aortic.) Consult Discharge Plan - Plan Additional Instructions: F/up with PCP in 1-2 weeks F/up with Hematology/Oncology in 3-4 weeks Referrals: Juan Luis Rodriguez MD [Partnered Physician] - 01/31/18 1:45 pm (Follow up as scheduled.) Ender Mcneal MD [Primary Care Provider] - 01/16/18 9:00 am (Follow up as scheduled. ) Prescriptions: Apixaban [Eliquis] 5 mg PO BID #60 tablet
== END 2018-01-11 16:33 | disposition home or self-care (01) ==
LOC: EMEROO 11:40 → 2ANU 11:40 → SUATTDRO 17:34 → 2ANU 17:37
PROVIDERS: ADMIT Internal Medicine; ATTEND Internal Medicine